=== PATIENT | male | born 1955 | race Caucasian/White ===

== ENCOUNTER → 2016-09-19 | Outpatient (CLI) | payer BC, OTHER ==
[2016-09-19 15:47] LABS: BASO % 0.4 % (0.0-1.0); EOS # 0.5 K/mm3 (0.0-0.50); EOS % 14.3 % (0.0-3.0); LARGE UNSTAINED CELL # 0.1 K/mm3 (0.0-0.4); LARGE UNSTAINED CELL % 3.2 % (0.0-4.0); LYMPH # 1.2 K/mm3 (1.5-4.5); LYMPH % 35.6 % (24.0-44.0); MEAN CORPUSCULAR HEMOGLOBIN 33.6 pg (27.0-33.0); MEAN CORPUSCULAR HGB CONC 35.5 g/dl (32.0-36.5); MEAN CORPUSCULAR VOLUME 94.5 fl (80.0-96.0); MONO # 0.1 K/mm3 (0.0-0.8); NEUTROPHILS # 1.5 K/mm3 (1.8-7.7); NEUTROPHILS % 42.5 % (36.0-66.0); PLATELET COUNT, AUTOMATED 165 k/mm3 (150-450); RED CELL DISTRIBUTION WIDTH 15.9 % (11.5-14.5); WHITE BLOOD COUNT 3.5 K/mm3 (4.0-10.0)
[2016-09-19 16:50] LABS: ALBUMIN 4.5 GM/DL (3.2-5.2); ALBUMIN/GLOBULIN RATIO 1.55 (1.00-1.93); ALKALINE PHOSPHATASE 87 U/L (45-117); ALT/SGPT 23 U/L (12-78); ANION GAP 5 MEQ/L (8-16); AST/SGOT 13 U/L (15-37); BILIRUBIN,TOTAL 0.5 MG/DL (0.2-1.0); BLOOD UREA NITROGEN 20 MG/DL (7-18); CALCIUM LEVEL 8.8 MG/DL (8.5-10.1); CARBON DIOXIDE LEVEL 30 MEQ/L (21-32); CHLORIDE LEVEL 104 MEQ/L (98-107); COMPLEMENT C3 116 MG/DL (90-180); COMPLEMENT C4 24.4 MG/DL (10-40); CREATININE FOR GFR 1.12 MG/DL (0.70-1.30); GLOMERULAR FILTRATION RATE > 60.0 (>56); GLUCOSE, FASTING 125 MG/DL (70-105); IMMUNOGLOBULIN G 1170 MG/DL (681-1648); IMMUNOGLOBULIN M 129 MG/DL (40-230); POTASSIUM SERUM 3.7 MEQ/L (3.5-5.1); SODIUM LEVEL 139 MEQ/L (136-145); T UPTAKE 32 % (33-40); THYROXINE (T4) 11.4 UG/DL (4.5-12.0); TOTAL PROTEIN 7.4 GM/DL (6.4-8.2)
[2016-09-19 16:53] LABS: ERYTHROCYTE SEDIMENTATION RATE 13 mm/hr (0-20)
[2016-09-20 09:40] LABS: THYROID PEROXIDASE ANTIBODY < 28.0 U/ML (<60.0)
== END ==
LOC: M LAB 13:33
PROVIDERS: ATTEND Allergy & Immunology
DX: J30.89 Other allergic rhinitis (principal); J32.0 Chronic maxillary sinusitis; L50.8 Other urticaria; R05 Cough

== ENCOUNTER → 2016-10-17 | Outpatient (CLI) | payer OTHER ==
[2016-10-17 14:38] LABS: MEAN CORPUSCULAR HEMOGLOBIN 32.6 pg (27.0-33.0); MEAN CORPUSCULAR HGB CONC 35.2 g/dl (32.0-36.5); MEAN CORPUSCULAR VOLUME 92.6 fl (80.0-96.0); RED CELL DISTRIBUTION WIDTH 15.9 % (11.5-14.5); WHITE BLOOD COUNT 3.4 K/mm3 (4.0-10.0)
[2016-10-17 16:00] LABS: ALBUMIN 4.4 GM/DL (3.2-5.2); ALBUMIN/GLOBULIN RATIO 1.33 (1.00-1.93); ALKALINE PHOSPHATASE 76 U/L (45-117); ALT/SGPT 24 U/L (12-78); ANION GAP 9 MEQ/L (8-16); AST/SGOT 14 U/L (15-37); BILIRUBIN,TOTAL 0.6 MG/DL (0.2-1.0); BLOOD UREA NITROGEN 23 MG/DL (7-18); CARBON DIOXIDE LEVEL 28 MEQ/L (21-32); CHLORIDE LEVEL 101 MEQ/L (98-107); CREATININE FOR GFR 1.07 MG/DL (0.70-1.30); GLOMERULAR FILTRATION RATE > 60.0 (>56); GLUCOSE, FASTING 99 MG/DL (70-105); IMMUNOGLOBULIN M 157 MG/DL (40-230); SODIUM LEVEL 138 MEQ/L (136-145); TOTAL PROTEIN 7.7 GM/DL (6.4-8.2)
[2016-10-17 16:01] LABS: COMPLEMENT C3 124 MG/DL (90-180); IMMUNOGLOBULIN G 1130 MG/DL (681-1648)
== END ==
LOC: M LAB 13:59
PROVIDERS: ATTEND Allergy & Immunology
DX: L50.8 Other urticaria (principal)

== ENCOUNTER → 2016-12-24 | Outpatient (CLI) | payer OTHER ==
[2016-12-24 14:25] LABS: BASO % 1.1 % (0.0-1.0); EOS # 0.1 K/mm3 (0.0-0.50); EOS % 2.9 % (0.0-3.0); LARGE UNSTAINED CELL # 0.1 K/mm3 (0.0-0.4); LYMPH # 0.6 K/mm3 (1.5-4.5); LYMPH % 16.2 % (24.0-44.0); MEAN CORPUSCULAR HEMOGLOBIN 32.5 pg (27.0-33.0); MEAN CORPUSCULAR HGB CONC 34.3 g/dl (32.0-36.5); MEAN CORPUSCULAR VOLUME 94.8 fl (80.0-96.0); MONO # 0.3 K/mm3 (0.0-0.8); MONO % 9.3 % (0.0-5.0); NEUTROPHILS # 2.3 K/mm3 (1.8-7.7); NEUTROPHILS % 67.5 % (36.0-66.0); PLATELET COUNT, AUTOMATED 118 k/mm3 (150-450); RED CELL DISTRIBUTION WIDTH 17.8 % (11.5-14.5); WHITE BLOOD COUNT 3.4 K/mm3 (4.0-10.0)
[2016-12-24 15:37] LABS: ALBUMIN 4.6 GM/DL (3.2-5.2); ALBUMIN/GLOBULIN RATIO 1.53 (1.00-1.93); BILIRUBIN,DIRECT 0.3 MG/DL (0.0-0.2); BILIRUBIN,TOTAL 1.1 MG/DL (0.2-1.0); TOTAL PROTEIN 7.6 GM/DL (6.4-8.2)
== END ==
LOC: M LAB 11:42
PROVIDERS: ATTEND Dermatology
DX: R21 Rash and other nonspecific skin eruption (principal)

== ENCOUNTER → 2017-01-02 | Outpatient (CLI) | payer OTHER | LOC: M LAB 14:10 | PROVIDERS: ATTEND Dermatology | DX: R21 Rash and other nonspecific skin eruption (principal) ==

== ENCOUNTER → 2017-02-11 | Outpatient (CLI) | payer OTHER ==
[2017-02-11 12:14] LABS: BASO % 0.7 % (0.0-1.0); EOS # 0.1 10^3/uL (0.0-0.50); EOS % 1.8 % (0.0-3.0); IMMATURE GRANULOCYTE % 2.5 % (0-0); LYMPH # 0.5 10^3/uL (1.5-4.5); LYMPH % 19.2 % (24.0-44.0); MEAN CORPUSCULAR VOLUME 97.1 fl (80.0-96.0); MONO # 0.3 10^3/uL (0.0-0.8); MONO % 10.3 % (0.0-5.0); NEUTROPHILS # 1.8 10^3/uL (1.8-7.7); NEUTROPHILS % 65.5 % (36.0-66.0); PLATELET COUNT, AUTOMATED 146 10^3/uL (150-450); RED CELL DISTRIBUTION WIDTH 16.1 % (11.5-14.5); WHITE BLOOD COUNT 2.8 10^3/uL (4.0-10.0)
[2017-02-11 12:15] LABS: ADD MANUAL DIFFER NO; DIFF SLIDE NUMBER 219
[2017-02-11 12:38] LABS: ALBUMIN 4.3 GM/DL (3.2-5.2); ALBUMIN/GLOBULIN RATIO 1.54 (1.00-1.93); ALKALINE PHOSPHATASE 55 U/L (45-117); ALT/SGPT 27 U/L (12-78); AST/SGOT 20 U/L (15-37); BILIRUBIN,DIRECT 0.1 MG/DL (0.0-0.2); BILIRUBIN,TOTAL 0.5 MG/DL (0.2-1.0); BLOOD UREA NITROGEN 23 MG/DL (7-18); CREATININE FOR GFR 1.06 MG/DL (0.70-1.30); GLOMERULAR FILTRATION RATE > 60.0 (>49); TOTAL PROTEIN 7.1 GM/DL (6.4-8.2)
== END ==
LOC: M LAB 11:22
PROVIDERS: ATTEND Dermatology
DX: L30.9 Dermatitis, unspecified (principal)

== ENCOUNTER → 2017-04-18 | Outpatient (CLI) | payer OTHER ==
[~2017-04-18] MED LIST: CALC500T49 PO; STINGING NETTLE PO; [UNRECOGNIZED DRUG - OTHER] PO
[2017-04-19 14:10] LABS: Lyme Disease IgG/IgM Antibodie <0.91 ISR (0.00-0.90); Lyme Disease IgM Ab Quantitati <0.80 index (0.00-0.79)
== END ==
LOC: M LAB 11:26
PROVIDERS: ATTEND Emergency Medicine
DX: R21 Rash and other nonspecific skin eruption (principal)

== ENCOUNTER 2017-04-28 06:11 | Day surgery (SDC) | payer OTHER ==
[~2017-04-28] VITALS: Ht 182.9 cm; Wt 82.1 kg
[2017-04-28] MEDS ORDERED: LR 1,000 ML IV ONE (06:30)
[2017-04-28] MEDS ORDERED: ONDANSETRON 4MG/2ML VIAL (J2405) As Ordered ONE (07:11)
[2017-04-28] MEDS ORDERED: fentaNYL 100 MCG/2 ML INJECTION (J3010) As Ordered ONE (07:11)
[2017-04-28] MEDS ORDERED: ROCURONIUM BROMIDE 50 MG/5 ML VIAL As Ordered ONE (07:11)
[2017-04-28] MEDS ORDERED: GLYCOPYRROLATE INJ 0.2 MG/ML 2 ML VIAL As Ordered ONE ×2 (07:11→09:55)
[2017-04-28] MEDS ORDERED: HYDROmorphone HCL 2 MG/ML 1ML VIAL (J1170) As Ordered ONE (07:11)
[2017-04-28] MEDS ORDERED: MIDAZOLAM INJ 2 MG/2 ML VIAL (J2250) As Ordered ONE (07:11)
[2017-04-28] MEDS ORDERED: NEOSTIGMINE 10 MG/10 ML VIAL (J2710) As Ordered ONE (07:11)
[2017-04-28] MEDS ORDERED: PROPOFOL 200 MG/20 ML VIAL As Ordered ONE (07:11)
[2017-04-28] MEDS ORDERED: LIDOCAINE W/EPINEPHRINE 1% 20ML VIAL As Ordered ONE (07:41)
[2017-04-28] MEDS ORDERED: fentaNYL 100 MCG/2 ML INJECTION (J3010) IV PRN (09:30)
[2017-04-28] MEDS ORDERED: NORCO, ANEXSIA 5/325MG TABLET (HYDROcodone/ACETAMINOPHEN) PO PRN (09:30)
[2017-04-28] MEDS ORDERED: ONDANSETRON 4MG/2ML VIAL (J2405) IV PRN (09:30)
[2017-04-28] MEDS ORDERED: PERCOCET 5MG/325MG TAB PO PRN (09:30)
[2017-04-28] MEDS ORDERED: LR 1,000 ML IV SCH (09:30)
[2017-04-28] MEDS ORDERED: METOCLOPRAMIDE INJ 10MG/2ML VIAL (J2765) As Ordered ONE (09:46)
[2017-04-28] MEDS ORDERED: METOCLOPRAMIDE INJ 10MG/2ML VIAL (J2765) IV PRN (10:00)
[2017-04-28] MEDS ORDERED: ONDANSETRON 4MG/2ML VIAL (J2405) IV ONE (10:45)
[2017-04-28] MEDS ORDERED: GLYCOPYRROLATE INJ 0.2 MG/ML 2 ML VIAL IV ONE (10:45)
[2017-04-28 14:35] VITALS: BP 110/68
--- NOTE | 2017-04-28 21:12 | RO ---
DATE OF PROCEDURE: 04/28/2017 PREOPERATIVE DIAGNOSIS: Left inguinal hernia. POSTOPERATIVE DIAGNOSIS: Left inguinal hernia. PROCEDURE: Robotic-assisted left inguinal repair. SURGEON: Dr. Francisco Dasilva CROSSING TENDER: None. ANESTHESIA: General. ESTIMATED BLOOD LOSS: 5 mL COMPLICATIONS: None. INDICATION FOR PROCEDURE: The patient is a 61-year-old male who presents with a history of the left groin bulge and pain that has been getting gradually worse for the past couple months. Recommendation to proceed with robotic-assisted left inguinal hernia repair, possible bilateral, possible open. Risks and benefits of the procedure not limited to but including bleeding, infection, hernia formation , hernia recurrence, damage to surrounding structures, need for further surgery were discussed in detail with the patient and informed was obtained and the procedure was planned. DESCRIPTION OF PROCEDURE: The patient brought back to operating room 7. After sufficient sedation, the abdomen was sterilely prepped and draped. Next, a time-out was done to confirm proper patient and proper procedure. Following that, an 8 mm incision made supraumbilically. Veress needle was used to gain access to the abdomen. Once the abdomen was entered, 5 mm OptiVu port was used to gain access to the abdomen with the camera. Once the abdomen was entered, 8 mm robotic ports were placed in left and right midabdomen, the 5 mm OptiVu port was then removed and replaced with 8 mm robotic camera port. Next, the robot was docked to the ports. Instruments were inserted under direct visualization. The rest of the procedures done from the console. The abdomen was examined. No signs of hernia on the right side. There was a large hernia on the left. The peritoneum was incised in a curvilinear fashion just superior to the left inguinal canal. Preperitoneal dissection was then completed with a combination of blunt and sharp dissection. The hernia sac was then grabbed, carefully dissected free from the core structures circumferentially and carefully dissected distally until the end of the sac was reached. Once the end of the sac was reached it was carefully dissected posteriorly until it was completely freed up. Dissection was then continued medially until the pubic symphysis was visualized. Once all dissection was complete, Bard 3-D Max light medium mesh was placed into the preperitoneal space on the left side. This was sutured in place to the pubic symphysis using #2-0 Vicryl suture. The peritoneum was then closed over top of it using #2-0 V-Loc suture. Once this was complete, the abdomen was desufflated. The robot was disconnected and undocked. The port sites were closed with #4-0 Vicryl subcuticular sutures. Abdomen was cleaned and dried. Steri-Strips, 4 x 4 and tape were applied thus ending the procedure. PHAM
== END 2017-04-28 14:40 | disposition home or self-care (01) ==
LOC: M SDC 06:11
PROVIDERS: ATTEND Surgery
DX: K40.90 Unilateral inguinal hernia, without obstruction or gangrene, not specified as recurrent (principal)
CPT/HCPCS: 49650; C1781; J0690; J1170; J2250; J2405; J2710; J2765; J3010

== ENCOUNTER → 2017-11-26 | Outpatient (CLI) | payer OTHER | LOC: M CLY 14:44 | DX: M54.14 Radiculopathy, thoracic region (principal) ==

== ENCOUNTER 2017-11-28 23:05 | Emergency (ER) | payer OTHER ==
[2017-11-29] MEDS: NORCO, ANEXSIA 5/325MG TABLET (HYDROcodone/ACETAMINOPHEN) PO (01:24)
[2017-11-29] MEDS: NORCO 5/325MG TABLET (BULK FOR ED) PO (03:12)
== END 2017-11-29 03:14 | disposition home or self-care (01) ==
LOC: M ED 23:05
DX: S22.058A Other fracture of T5-T6 vertebra, initial encounter for closed fracture (principal); V48.0XXA Car driver injured in noncollision transport accident in nontraffic accident, initial encounter; Y92.410 Unspecified street and highway as the place of occurrence of the external cause; Z79.899 Other long term (current) drug therapy
CPT/HCPCS: 71250

== ENCOUNTER → 2017-12-02 | Outpatient (CLI) | payer OTHER | LOC: M RAD 16:49 | DX: M54.14 Radiculopathy, thoracic region (principal) ==

== ENCOUNTER 2017-12-10 20:11 | Observation (INO) | payer OTHER ==
[2017-12-10 21:58] LABS: BASO % 0.2 % (0.0-1.0); EOS # 0.4 10^3/uL (0.0-0.50); EOS % 4.8 % (0.0-3.0); HEMATOCRIT 30.8 % (42.0-52.0); HEMOGLOBIN 10.8 g/dl (13.5-17.5); IMMATURE GRANULOCYTE % 0.9 % (0-3.0); LYMPH # 0.4 10^3/uL (1.5-4.5); LYMPH % 4.8 % (24.0-44.0); MEAN CORPUSCULAR HEMOGLOBIN 32.5 pg (27.0-33.0); MEAN CORPUSCULAR HGB CONC 35.1 g/dl (32.0-36.5); MEAN CORPUSCULAR VOLUME 92.8 fl (80.0-96.0); MONO # 0.3 10^3/uL (0.0-0.8); MONO % 3.9 % (0.0-5.0); NEUTROPHILS # 7.2 10^3/uL (1.8-7.7); NEUTROPHILS % 85.4 % (36.0-66.0); PLATELET COUNT, AUTOMATED 171 10^3/uL (150-450); RED BLOOD COUNT 3.32 10^6/uL (4.30-6.10); RED CELL DISTRIBUTION WIDTH 15.5 % (11.5-14.5); WHITE BLOOD COUNT 8.5 10^3/uL (4.0-10.0)
[2017-12-10] MEDS: ALBUTEROL SULFATE 2.5 MG/0.5 ML INH NEB SOLN NEB (22:07)
[2017-12-10 22:12] LABS: INR 1.11; PROTHROMBIN TIME 14.5 SECONDS (12.1-14.4)
[2017-12-10 22:19] LABS: ALBUMIN 4.1 GM/DL (3.2-5.2); ALBUMIN/GLOBULIN RATIO 1.11 (1.00-1.93); ALKALINE PHOSPHATASE 99 U/L (45-117); ALT/SGPT 19 U/L (12-78); ANION GAP 6 MEQ/L (8-16); AST/SGOT 14 U/L (7-37); BILIRUBIN,DIRECT 0.2 MG/DL (0.0-0.2); BILIRUBIN,TOTAL 0.6 MG/DL (0.2-1.0); BLOOD UREA NITROGEN 14 MG/DL (7-18); CALCIUM LEVEL 8.7 MG/DL (8.8-10.2); CARBON DIOXIDE LEVEL 29 MEQ/L (21-32); CHLORIDE LEVEL 102 MEQ/L (98-107); CK-MB VALUE MASS < 1.0 NG/ML (<3.6); CPK CREATINE PHOSPHOKINASE 67 U/L (39-308); CREATININE FOR GFR 1.13 MG/DL (0.70-1.30); GLOMERULAR FILTRATION RATE > 60.0 (>49); GLUCOSE, FASTING 126 MG/DL (70-100); MB/CK RELATIVE INDEX 1.49 (< OR =4); NT-PRO BNP 82 PG/ML (<125); POTASSIUM SERUM 3.9 MEQ/L (3.5-5.1); SODIUM LEVEL 137 MEQ/L (136-145); TOTAL PROTEIN 7.8 GM/DL (6.4-8.2); TROPONIN I < 0.02 NG/ML (< 0.10)
[2017-12-10] MEDS ORDERED: ISOVUE-370 76% 100ML VIAL (Q9967) As Ordered (23:28)
[2017-12-11] MEDS ORDERED: BISACODYL 10 MG SUPP PR (01:45)
[2017-12-11] MEDS ORDERED: ONDANSETRON 4 MG TAB (S0181) PO (01:45)
[2017-12-11] MEDS: APIXABAN 5 MG TAB (ELIQUIS) PO ×3 (02:00→20:30)
[2017-12-11 06:28] LABS: HEMATOCRIT 28.8 % (42.0-52.0); MEAN CORPUSCULAR HEMOGLOBIN 32.2 pg (27.0-33.0); MEAN CORPUSCULAR HGB CONC 34.7 g/dl (32.0-36.5); MEAN CORPUSCULAR VOLUME 92.6 fl (80.0-96.0); PLATELET COUNT, AUTOMATED 154 10^3/uL (150-450); RED BLOOD COUNT 3.11 10^6/uL (4.30-6.10); RED CELL DISTRIBUTION WIDTH 15.4 % (11.5-14.5); WHITE BLOOD COUNT 5.3 10^3/uL (4.0-10.0)
[2017-12-11] MEDS: ALBUTEROL SULFATE 2.5 MG/0.5 ML INH NEB SOLN NEB ×3 (10:41→20:36)
[2017-12-11 13:50] LABS: COMPLEMENT C4 26.7 MG/DL (10-40)
[2017-12-11] MEDS: ACETAMINOPHEN TAB 650MG DOSE (2X325MG) PO (20:31)
[2017-12-12] MEDS: ACETAMINOPHEN TAB 650MG DOSE (2X325MG) PO (05:39)
[2017-12-12] MEDS: APIXABAN 5 MG TAB (ELIQUIS) PO (07:57)
[2017-12-12] MEDS: ALBUTEROL SULFATE 2.5 MG/0.5 ML INH NEB SOLN NEB (11:16)
[2017-12-20 00:06] LABS: C1q BINDING IMMUNE COMPLEX 3.1 ug Eq/mL (.)
[2017-12-20 00:06] LABS: C1 ESTERASE INHIB. FUNCTIONAL 80 (.)
== END 2017-12-12 12:05 | disposition home or self-care (01) ==
LOC: M ED INP 20:12 → M ED 20:11 → M MSPAV 12-11 03:55
DX: I26.99 Other pulmonary embolism without acute cor pulmonale (principal); I82.401 Acute embolism and thrombosis of unspecified deep veins of right lower extremity; S22.050D Wedge compression fracture of T5-T6 vertebra, subsequent encounter for fracture with routine healing; J90 Pleural effusion, not elsewhere classified; Z86.79 Personal history of other diseases of the circulatory system; Z83.2 Family history of diseases of the blood and blood-forming organs and certain disorders involving the immune mechanism; Z79.02 Long term (current) use of antithrombotics/antiplatelets
CPT/HCPCS: Q9967

== ENCOUNTER → 2017-12-23 | Outpatient (CLI) | payer OTHER | LOC: M CLY 15:46 | DX: I27.82 Chronic pulmonary embolism (principal) | CPT/HCPCS: 71046 ==

== ENCOUNTER → 2017-12-24 | Outpatient (REF) | payer OTHER ==
[2018-01-01 00:07] LABS: Lyme Disease IgG/IgM Antibodie <0.91 ISR (0.00-0.90); Lyme Disease IgM Ab Quantitati <0.80 index (0.00-0.79)
== END ==
LOC: M LAB REF 11:58
DX: I27.82 Chronic pulmonary embolism (principal)